=== PATIENT | male | born 1985 | race Caucasian/White ===

== ENCOUNTER 2016-10-30 16:53 | Emergency (ER) | payer MEDICAID | END 2016-10-30 18:34 | disposition home or self-care (01) | LOC: D.ER 16:53 | DX: S93.401A Sprain of unspecified ligament of right ankle, initial encounter (principal); X58.XXXA Exposure to other specified factors, initial encounter; Y93.89 Activity, other specified; Y92.89 Other specified places as the place of occurrence of the external cause; S93.601A Unspecified sprain of right foot, initial encounter ==